=== PATIENT | female | born 1950 | race Caucasian/White ===

== ENCOUNTER 2016-12-17 18:47 | Emergency (ER) | payer OTHER ==
[2016-12-17 18:54] VITALS: BP 143/73
[2016-12-17] MEDS ORDERED: BOOSTRIX VACCINE IM ONE (19:17)
--- NOTE | 2016-12-17 19:23 | PROVIDER DOCUMENTATION ---
HPI-Animal/Snake Bite Injury - General Chief Complaint: Animal Bite Stated Complaint: DOG BITE Time Seen by Provider: 12/17/16 19:03 Patient arrived via EMS?: No Source: patient Allergies/Adverse Reactions: Patient Allergies Allergy/AdvReac Type Severity Reaction Status Date / Time desvenlafaxine succinate * Allergy Severe Unknown Verified 12/17/16 18:54 [From Pristiq] duloxetine HCl * Allergy Severe Unknown Verified 12/17/16 18:54 [From Cymbalta] ketorolac tromethamine * Allergy Severe Unknown Verified 12/17/16 18:54 [From Toradol] lamotrigine [From Lamictal] Allergy Severe Unknown Verified 12/17/16 18:54 morphine Allergy Severe ITCHING Verified 12/17/16 18:54 Sulfa (Sulfonamide Allergy Severe Unknown Verified 12/17/16 18:54 Antibiotics) venlafaxine HCl * Allergy Severe Unknown Verified 12/17/16 18:54 [From Effexor] tramadol Allergy Unknown Unknown Verified 12/17/16 18:54 haloperidol [From Haldol] Allergy DIZZINESS Verified 12/17/16 18:54 haloperidol lactate * Allergy DIZZINESS Verified 12/17/16 18:54 [From Haldol] lurasidone HCl * Allergy Unknown Verified 12/17/16 18:54 [From Latuda] ziprasidone HCl * Allergy DIZZINESS Verified 12/17/16 18:54 [From Geodon] ziprasidone mesylate * Allergy DIZZINESS Verified 12/17/16 18:54 [From Geodon] Home Medications: Home Medication List Medication Instructions Recorded Confirmed Last Taken Type Isomethept/Acetaminop/Dichlphn 1 dose PO PRN PRN 07/01/15 11/08/16 3 Months Ago History [Ityqmvroag-Kjkfotbuaf-Lnakcjuy] Clonazepam [Klonopin] 1 mg PO HS #0 tablet 07/11/15 11/08/16 1 Day Ago Rx Estradiol 1 mg PO HS #0 07/11/15 11/08/16 11/07/16 Rx Pramipexole Di-HCl [Mirapex] 0.5 mg PO HS #0 07/11/15 11/08/16 11/07/16 Rx Hydrocodone Bit/Acetaminophen 7.5 each PO 3-4XDAY PRN PRN 08/19/15 11/08/16 1 Day Ago History [Hydrocodon-Acetaminophen 5-325] L.acidoph,Paracasei, B.lactis 1 each PO DAILY PRN 08/19/15 11/08/16 11/08/16 History [Probiotic] Lidocaine 5% Patch [Lidoderm] 1 each TOP DAILY PRN 08/19/15 11/08/16 2 Days Ago History Isomethept/Acetaminop/Dichlphn 1 cap PO DAILY PRN 01/21/16 11/08/16 3 Months Ago History [Amidrine Capsule] [place] Carbonate 1 tab PO QHS 01/21/16 11/08/16 11/07/16 History Modafinil 1 tab PO DAILY 01/21/16 11/08/16 11/08/16 History Levothyroxine [Synthroid] 150 mcg PO QAM 11/08/16 11/08/16 11/08/16 History Lorazepam [Ativan] 1 mg PO HS #3 tablet 11/08/16 Unknown Rx Phenobarbital 15 mg PO QHS 11/08/16 11/08/16 11/07/16 History Amoxicillin/Pot Clavulanate 875 mg PO Q12HR #14 tablet 12/17/16 Unknown Rx [Augmentin] Doxycycline 100 mg PO BID #20 capsule 12/17/16 Unknown Rx Metronidazole 500 mg PO TID #30 tablet 12/17/16 Unknown Rx - History of Present Illness-Bite Injuries Nature of Presenting Problem: 66 y/o WF c/o dog bite to R hand x 1 hour. Pt states the dog is new to her [place], but states shots UTD including rabies. Reports that the dog has bit her several times over last week or so. States that she is taking dog back [place], but reports this is the worst bite yet. Review of Systems - Adult - REVIEW OF SYSTEMS - ADULT Constitutional: reports: no symptoms reported. denies: chills, fever Eyes: reports: no symptoms reported. denies: blurred vision, double vision Ears, Nose, Mouth & Throat: reports: no symptoms reported. denies: ear pain, nose pain Cardiovascular: reports: no symptoms reported. denies: chest pain, palpitations Respiratory: reports: no symptoms reported. denies: dyspnea on exertion, shortness of breath Gastrointestinal: reports: no symptoms reported. denies: nausea, vomiting Genitourinary: reports: no symptoms reported. denies: dysuria, frequency Musculoskeletal: reports: no symptoms reported. denies: joint pain, joint swelling Integumentary: reports: see HPI, other. denies: nail changes, rash Neurological: reports: no symptoms reported. denies: numbness, paresthesia Psychiatric: reports: no symptoms reported Endocrine: reports: no symptoms reported. denies: cold intolerance, heat intolerance Hematologic/Lymphatic: reports: no symptoms reported. denies: easy bruising, prolonged bleeding Allergic/Immunologic: reports: no symptoms reported All Other Systems: Reviewed and Negative Past History - Adult - PAST MEDICAL HISTORY-ADULT Review of Records: reports: Nursing Assessment Review, Medications Reviewed Major Childhood Illnesses: reports: denies history Genitourinary: reports: chronic UTI's Musculoskeletal: reports: chronic pain, intervertebral disc disease Psychiatric: reports: bipolar, depression Endocrine/Immune: reports: thyroid disorder - PRIOR SURGERIES/PROCEDURES Surgical/Procedure History: reports: appendectomy, cholecystectomy, hysterectomy , , back/neck, other (vaginal/rectocele repair) - IMMUNIZATION STATUS Childhood Immunizations: See Nurse Assessment Flu Vaccine: See Nurse Assessment - SOCIAL HISTORY Smoking: denies Living Situation: family Physical Exam-General - PHYSICAL EXAM-ADULT Initial Vital Signs Reviewed: Yes - CONSTITUTIONAL General Appearance: alert, mild distress - EYES Eyes: pink conjunctivae - HEAD, EARS, NOSE, MOUTH & THROAT HENMT: normocephalic/atraumatic, moist mucous membranes - NECK Neck: normal inspection - RESPIRATORY Respiratory: no respiratory distress - CARDIOVASCULAR Cardiovascular: normal peripheral pulses, regular rate, rhythm - MUSCULOSKELETAL Back Exam: normal inspection Extremity: normal range of motion, normal gait, normal capillary refill. negative: abnormal NV exam, deformity, pulse deficit Peripheral Pulses: radial (R): 2+, radial (L): 2+ - SKIN Integumentary: normal color, normal turgor, warm/dry, laceration(s) (0.5 cm superficial lac to dorsal aspect of L hand) - NEUROLOGIC Neurologic: negative: aphasia - PSYCHIATRIC Psych/Mental Status: normal mood/affect, normal thought content, normal thought process, oriented x 3 Progress - PLAN OF CARE/RESULTS Progress/Plan/Lab Results: Orders Category Date Time Status Wound Care DIRECTED Care 12/17/16 19:17 Active Diph,Pertuss(Acell),Tet Vac/Pf [Boostrix Vaccine] Med 12/17/16 19:17 Discontinued 0.5 ml IM .ONCE ONE Vital Signs Temp Pulse Resp BP Pulse Ox 12/17/16 18:49 98.3 F 93 H 18 143/73 97 desvenlafaxine succinate * [From Pristiq] Allergy (Severe, Verified 12/17/16 18: 54) Unknown JERKING duloxetine HCl * [From Cymbalta] Allergy (Severe, Verified 12/17/16 18:54) Unknown PT STATES JERKING ketorolac tromethamine * [From Toradol] Allergy (Severe, Verified 12/17/16 18:54 ) Unknown PT STATES JERKING lamotrigine [From Lamictal] Allergy (Severe, Verified 12/17/16 18:54) Unknown JERKING morphine Allergy (Severe, Verified 12/17/16 18:54) ITCHING Sulfa (Sulfonamide Antibiotics) Allergy (Severe, Verified 12/17/16 18:54) Unknown venlafaxine HCl * [From Effexor] Allergy (Severe, Verified 12/17/16 18:54) Unknown PT DOESN'T RECALL tramadol Allergy (Unknown, Verified 12/17/16 18:54) Unknown haloperidol [From Haldol] Allergy (Verified 12/17/16 18:54) DIZZINESS haloperidol lactate * [From Haldol] Allergy (Verified 12/17/16 18:54) DIZZINESS lurasidone HCl * [From Latuda] Allergy (Verified 12/17/16 18:54) Unknown ziprasidone HCl * [From Geodon] Allergy (Verified 12/17/16 18:54) DIZZINESS ziprasidone mesylate * [From Geodon] Allergy (Verified 12/17/16 18:54) DIZZINESS Isomethept/Acetaminop/Dichlphn [Jzzzgtqpdn-Oputtiuxwv-Gihulkwz] 1 dose PO PRN PRN 15 Clonazepam [Klonopin] 1 mg PO HS #0 tablet 07/11/15 Estradiol 1 mg PO HS #0 07/11/15 Pramipexole Di-HCl [Mirapex] 0.5 mg PO HS #0 07/11/15 Hydrocodone Bit/Acetaminophen [Hydrocodon-Acetaminophen 5-325] 7.5 each PO 3- 4XDAY PRN PRN 08/19/15 L.acidoph,Paracasei, B.lactis [Probiotic] 1 each PO DAILY PRN 08/19/15 Lidocaine 5% Patch [Lidoderm] 1 each TOP DAILY PRN 08/19/15 Isomethept/Acetaminop/Dichlphn [Amidrine Capsule] 1 cap PO DAILY PRN 01/21/16 [place] Carbonate 1 tab PO QHS 01/21/16 Modafinil 1 tab PO DAILY 01/21/16 Levothyroxine [Synthroid] 150 mcg PO QAM 11/08/16 Lorazepam [Ativan] 1 mg PO HS #3 tablet 11/08/16 Phenobarbital 15 mg PO QHS 11/08/16 Amoxicillin/Pot Clavulanate [Augmentin] 875 mg PO Q12HR #14 tablet 12/17/16 Doxycycline 100 mg PO BID #20 capsule 12/17/16 Metronidazole 500 mg PO TID #30 tablet 12/17/16 DISORDER OF THYROID, UNSPECIFIED (12/17/16) BIPOLAR DISORDER, UNSPECIFIED (12/17/16) MAJOR DEPRESSIVE DISORDER, SINGLE EPISODE, UNSPECIFIED (12/17/16) OTHER CHRONIC PAIN (12/17/16) LACERATION WITHOUT FOREIGN BODY OF LEFT HAND, INIT ENCNTR (12/17/16) BITTEN BY DOG, INITIAL ENCOUNTER (12/17/16) ENCOUNTER FOR IMMUNIZATION (12/17/16) OTHER SUSTAINABLE SYSTEMS ANALYST (CURRENT) DRUG THERAPY (12/17/16) Departure - Departure Time of Disposition Order: 19:22 DIAGNOSIS: Dog bite Qualifiers: Encounter type: initial encounter Qualified Code(s): W54.0XXA - Bitten by dog, initial encounter Disposition: HOME 01 Certified Medical Emergency: Emergent Condition: Stable Additional Instructions: Take medications as directed. Keep wound clean and dry. Return if symptoms get worse. ED Follow Up Instructions: You have been treated by a care provider in the Emergency Department. These instructions are being provided to you so you can have an understanding of how to care for yourself upon discharge. Upon discharge from the Emergency Department, you are responsible for making arrangements for follow-up care by a physician of your choice. Take all prescribed medications as directed. Return to the Emergency Department immediately for any new or worsening symptoms. You may call the Physician Referral phone number at [phone] to obtain a list of Physicians who are taking new patients. Prescriptions: Amoxicillin/Pot Clavulanate [Augmentin] 875 mg PO Q12HR #14 tablet Doxycycline 100 mg PO BID #20 capsule Metronidazole 500 mg PO TID #30 tablet Referrals: Valarie Yap MD [STAFF PHYSICIAN] - Instructions: Animal Bite, Friy-tn-Xycd, Amoxicillin capsules or tablets Attestation - Physician/ CONSTANTINO Attestation Patient care was provided by Advanced Practice Provider:: Yes Advanced Practice Provider:: Jessy Morales Advanced Practice Provider documentation review:: The Mid-level provider documentation, treatment plan and medical decision making was reviewed by the physician who agrees with all treatment and medical decision making by the MLP.
== END 2016-12-17 20:03 | disposition home or self-care (01) ==
LOC: P.ED 18:47
DX: S61.412A Laceration without foreign body of left hand, initial encounter (principal); G89.29 Other chronic pain; E07.9 Disorder of thyroid, unspecified; F32.9 Major depressive disorder, single episode, unspecified; F31.9 Bipolar disorder, unspecified; Z79.899 Other long term (current) drug therapy; Z23 Encounter for immunization; W54.0XXA Bitten by dog, initial encounter
CPT/HCPCS: 90471; 90715

== ENCOUNTER 2016-12-28 12:00 | Inpatient (IN) | payer OTHER ==
[2016-12-28 13:07] LABS: MANUAL DIFF NEEDED? NO
[2016-12-28 13:13] LABS: BASO% 0.5 % (0.0-0.8); EOS# 0.22 X1000 (0.0-0.7); EOS% 2.8 % (0.0-10.0); HEMATOCRIT 34.8 % (37.0-47.0); HEMOGLOBIN 10.9 g/dL (12.0-16.0); LYMPH# 1.88 X1000 (1.2-3.4); MCH 31.5 PG (27-31); MCHC 31.3 g/dL (33-37); MCV 100.6 FL (81-99); MONO# 0.68 X1000 (0.11-0.59); MONO% 8.7 % (1.7-9.3); MPV 9.4 FL (7.4-10.4); PLT 259 X1000 (130-400); RBC 3.46 XMIL (4.2-5.4)
[2016-12-28 13:33] LABS: ALBUMIN 3.5 g/dL (3.5-5.0); CALCIUM 9.2 mg/dL (8.8-10.2); POTASSIUM 4.6 mmol/L (3.5-5.1); TOTAL BILIRUBIN 0.19 mg/dL (0.20-1.00); TOTAL PROTEIN 6.5 g/dL (6.3-8.3)
[2016-12-28 13:53] LABS: CK INDEX 2.7 (0.0-2.5); CK-MB 7.89 ng/mL (0.0-5.0)
--- NOTE | 2016-12-28 13:54 | PROVIDER DOCUMENTATION ---
HPI-Neurological Disorder - General Source: patient, family Unable to obtain history due to:: altered - History of Present Illness-Neuro Severity: reports: mild, moderate Onset/Duration: reports: gradual, other (3 weeks) Timing: reports: still present, constant Context: reports: falling. denies: recent/heavy alcohol intake, recent infection, fever, impaired speech, paresthesia, seizure activity Character of Altered Mental Status: reports: trouble concentrating Any recent trauma/injury?: reports: none Character of Deficits: reports: falling Cognitive Baseline: alert, oriented x3 Gait Baseline: walks without assistance Associated Symptoms: reports: sleepy, trouble walking. denies: fainting, confusion, neck/back pain, fever/chills, loss of consciousness, muscle spasms, nausea, slurred speech, vomiting Similar Symptoms Previously?: Yes Recently seen or treated by another doctor?: Yes <Sg Vázquez - Last Filed: 12/28/16 16:23> <Julian Hernandez - Last Filed: 12/28/16 18:58> - General Chief Complaint: Syncope Stated Complaint: SYNCOPE Time Seen by Provider: 12/28/16 12:42 Allergies/Adverse Reactions: Patient Allergies Allergy/AdvReac Type Severity Reaction Status Date / Time desvenlafaxine succinate * Allergy Severe Unknown Verified 12/28/16 13:26 [From Pristiq] duloxetine HCl * Allergy Severe Unknown Verified 12/28/16 13:26 [From Cymbalta] ketorolac tromethamine * Allergy Severe Unknown Verified 12/28/16 13:26 [From Toradol] lamotrigine [From Lamictal] Allergy Severe Unknown Verified 12/28/16 13:26 morphine Allergy Severe ITCHING Verified 12/28/16 13:26 Sulfa (Sulfonamide Allergy Severe Unknown Verified 12/28/16 13:26 Antibiotics) venlafaxine HCl * Allergy Severe Unknown Verified 12/28/16 13:26 [From Effexor] tramadol Allergy Unknown Unknown Verified 12/28/16 13:26 gabapentin Allergy Unknown Verified 12/28/16 13:26 haloperidol [From Haldol] Allergy DIZZINESS Verified 12/28/16 13:26 haloperidol lactate * Allergy DIZZINESS Verified 12/28/16 13:26 [From Haldol] lurasidone HCl * Allergy Unknown Verified 12/28/16 13:26 [From Latuda] ziprasidone HCl * Allergy DIZZINESS Verified 12/28/16 13:26 [From Geodon] ziprasidone mesylate * Allergy DIZZINESS Verified 12/28/16 13:26 [From Geodon] meloxicam [From Mobic] AdvReac Unknown Verified 12/28/16 13:26 Home Medications: Home Medication List Medication Instructions Recorded Confirmed Last Taken Type Clonazepam [Klonopin] 1 mg PO HS #0 tablet 07/11/15 12/28/16 12/27/16 21:00 Rx Estradiol 1 mg PO HS #0 07/11/15 12/28/16 12/27/16 21:30 Rx Hydrocodone Bit/Acetaminophen 7.5 each PO 3-4XDAY PRN PRN 08/19/15 12/28/16 08:30 History [Hydrocodon-Acetaminophen 5-325] Lidocaine 5% Patch [Lidoderm] 1 each TOP DAILY PRN 08/19/15 12/28/16 12/24/16 History Levothyroxine [Synthroid] 150 mcg PO QAM 11/08/16 12/28/16 12/28/16 08:30 History Lorazepam [Ativan] 1 mg PO HS #3 tablet 11/08/16 12/28/16 Unknown Rx Bupropion S.r. [Wellbutrin Sr] 150 mg PO BID 12/28/16 12/28/16 12/28/16 08:30 History Buspirone [Buspar] 5 mg PO BID 12/28/16 12/28/16 12/28/16 08:30 History Naproxen Sodium [Anaprox Ds] 550 mg PO BID 12/28/16 12/28/16 Unknown History Tizanidine HCl [Zanaflex] 4 mg PO TID 12/28/16 12/28/16 12/28/16 08:30 History - History of Present Illness-Neuro Nature of Presenting Problem: patient is a 66 y/o F that presents to the ER with lethargy, slow to respond, and having passed out in chair per . patient for 3 weeks has been tired, sleeping, falling, and unable to stay awake. she was recently admitted to [facility] and saw her neurologist( ) which work up was negative. Patient is on numerous medications that are sedative. Has appointment with again next week (Sg Vázquez) Review of Systems - Adult - REVIEW OF SYSTEMS - ADULT ROS:: limited per condition Constitutional: reports: fatique. denies: chills, fever Eyes: reports: no symptoms reported Ears, Nose, Mouth & Throat: reports: no symptoms reported Cardiovascular: reports: syncope. denies: chest pain, palpitations Respiratory: denies: cough, shortness of breath, wheezing Gastrointestinal: denies: abdominal pain, diarrhea, nausea, vomiting Genitourinary: reports: no symptoms reported Musculoskeletal: denies: bone pain, back pain, joint pain, neck pain Integumentary: reports: no symptoms reported Neurological: reports: loss of balance, syncope. denies: dizziness/vertigo, headache/migraines Psychiatric: reports: no symptoms reported Endocrine: reports: no symptoms reported Hematologic/Lymphatic: reports: no symptoms reported Allergic/Immunologic: reports: no symptoms reported All Other Systems: Reviewed and Negative <Sg Vázquez - Last Filed: 12/28/16 16:23> Past History - Adult - PAST MEDICAL HISTORY-ADULT Review of Records: reports: Old Records Reviewed, Nursing Assessment Review, Medications Reviewed Genitourinary: reports: chronic UTI's Musculoskeletal: reports: chronic pain, intervertebral disc disease Neurological: reports: CVA Psychiatric: reports: bipolar, depression Endocrine/Immune: reports: thyroid disorder - PRIOR SURGERIES/PROCEDURES Surgical/Procedure History: reports: appendectomy, cholecystectomy, hysterectomy , , back/neck, other (vaginal/rectocele repair) - IMMUNIZATION STATUS Childhood Immunizations: See Nurse Assessment Flu Vaccine: See Nurse Assessment - FAMILY HISTORY Family History: reviewed, not pertinent - SOCIAL HISTORY Smoking: non-smoker Living Situation: family <Sg Vázquez - Last Filed: 12/28/16 16:23> Physical Exam- Neurological - Physical Exam-Neuro Initial Vital Signs Reviewed: Yes General Appearance: no apparent distress, lethargic, slow to respond Eye Exam: bilateral eye: other (pinpoint) HENMT: normocephalic/atraumatic, moist mucous membranes, normal ENT inspection Head Injury: no evidence of injury. 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, no motor/sensory deficits Integumentary: normal color, warm/dry Psych/Mental Status: oriented x 3, other (slow to respond, lethargy) <Sg Vázquez - Last Filed: 12/28/16 16:23> Progress - EKG 1 Time of EKG reading by physician:: 12:36 EKG Read and Signed by:: Abdifatah Guy EKG Interpretation (*Must complete 3 of following elements*): Abnormal Rate: 52 Rhythm: Sinus Bradycardia with 1st degree AV Block 2 Time of EKG reading by physician:: 16:10 EKG Read and Signed by:: Saroj García EKG Interpretation (*Must complete 3 of following elements*): Abnormal Rate: 58 Rhythm: Sinus Bradycardia with 1st Degree Av block [place]: normal QRS: normal [place] Interval: normal ST Wave: normal - CHANGE OF SHIFT REPORT (ED Provider) Report Given and Care Transferred to:: Dorita GARCIA Time of Transfer: 16:00 Items Pending: Labs Tentative Impression of Patient: over medication <Sg Vázquez - Last Filed: 12/28/16 16:23> - CONSULTS/PCP/HOSPITALIST Notification #1 *Consult/PCP/Hospitalist*: briggs Time Discussed: 18:56 Reason/Comments: night team will admit Consult Disposition: Admit <Julian Hernandez - Last Filed: 12/28/16 18:58> - PLAN OF CARE/RESULTS Progress/Plan/Lab Results: plan of care-labs, ekg 1559-repeat cardiacs (Sg Vázquez) Laboratory Tests 12/28/16 12/28/16 12/28/16 12:47 12:47 12:47 WBC 7.82 RBC 3.46 L Hgb 10.9 L Hct 34.8 L MCV 100.6 H MCH 31.5 H MCHC 31.3 L RDW Std Deviation 13.6 Plt Count 259 MPV 9.4 Neut % (Auto) 64.0 Lymph % (Auto) 24.0 [place] % (Auto) 8.7 Eos % (Auto) 2.8 Baso % (Auto) 0.5 Neut # (Auto) 5.00 Lymph # (Auto) 1.88 [place] # (Auto) 0.68 H Eos # (Auto) 0.22 Baso # (Auto) 0.04 PT INR PTT (Actin FS) Sodium 138 Potassium 4.6 Chloride 105 Carbon Dioxide 25 Anion Gap 8 BUN 16 Creatinine 1.1 H Estimated GFR/1.73 m2 50 BUN/Creatinine Ratio 15 Glucose 107 H Calculated Osmolality 277 Calcium 9.2 Total Bilirubin 0.19 L AST 21 ALT 23 Alkaline Phosphatase 69 Creatine Kinase 297 H Creatine Kinase Index 2.7 H CK-MB (CK-2) 7.89 H Troponin T Total Protein 6.5 Albumin 3.5 Globulin 3.0 Albumin/Globulin Ratio 1.2 Urine Source Urine Color Urine Turbidity Urine pH Ur Specific [place] Urine Protein Ur Glucose (Stick) Ur Ketones (Stick) Urine Blood Urine Nitrite Urine Bilirubin Urobilinogen Dipstick Urine Leukocytes Urine WBC (Auto) Urine RBC (Auto) U Epithel Cells (Auto) Urine Bacteria (Auto) Urine Opiates Screen Ur Oxycodone Screen Ur Methadone, Qual Ur Barbiturates Screen Ur Phencyclidine Scrn Ur Amphetamines Screen U Benzodiazepines Scrn [place] Urine Cocaine Screen U Cannabinoids Screen Plasma/Serum Ethyl Alc 12/28/16 12/28/16 12/28/16 12:47 12:47 14:31 WBC RBC Hgb Hct MCV MCH MCHC RDW Std Deviation Plt Count MPV Neut % (Auto) Lymph % (Auto) [place] % (Auto) Eos % (Auto) Baso % (Auto) Neut # (Auto) Lymph # (Auto) [place] # (Auto) Eos # (Auto) Baso # (Auto) PT 9.5 INR 0.93 PTT (Actin FS) 23.9 Sodium Potassium Chloride Carbon Dioxide Anion Gap BUN Creatinine Estimated GFR/1.73 m2 BUN/Creatinine Ratio Glucose Calculated Osmolality Calcium Total Bilirubin AST ALT Alkaline Phosphatase Creatine Kinase Creatine Kinase Index CK-MB (CK-2) Troponin T < 0.010 Total Protein Albumin Globulin Albumin/Globulin Ratio Urine Source Urine Color Urine Turbidity Urine pH Ur Specific [place] Urine Protein Ur Glucose (Stick) Ur Ketones (Stick) Urine Blood Urine Nitrite Urine Bilirubin Urobilinogen Dipstick Urine Leukocytes Urine WBC (Auto) Urine RBC (Auto) U Epithel Cells (Auto) Urine Bacteria (Auto) Urine Opiates Screen Ur Oxycodone Screen Ur Methadone, Qual Ur Barbiturates Screen Ur Phencyclidine Scrn Ur Amphetamines Screen U Benzodiazepines Scrn [place] 1.50 H Urine Cocaine Screen U Cannabinoids Screen Plasma/Serum Ethyl Alc 12/28/16 12/28/16 12/28/16 14:59 14:59 16:17 WBC RBC Hgb Hct MCV MCH MCHC RDW Std Deviation Plt Count MPV Neut % (Auto) Lymph % (Auto) [place] % (Auto) Eos % (Auto) Baso % (Auto) Neut # (Auto) Lymph # (Auto) [place] # (Auto) Eos # (Auto) Baso # (Auto) PT INR PTT (Actin FS) Sodium Potassium Chloride Carbon Dioxide Anion Gap BUN Creatinine Estimated GFR/1.73 m2 BUN/Creatinine Ratio Glucose Calculated Osmolality Calcium Total Bilirubin AST ALT Alkaline Phosphatase Creatine Kinase 265 H Creatine Kinase Index 2.7 H CK-MB (CK-2) 7.28 H Troponin T Total Protein Albumin Globulin Albumin/Globulin Ratio Urine Source CLEAN CATCH Urine Color YELLOW Urine Turbidity CLEAR Urine pH 7.0 Ur Specific [place] 1.012 Urine Protein NEGATIVE Ur Glucose (Stick) NEGATIVE Ur Ketones (Stick) NEGATIVE Urine Blood NEGATIVE Urine Nitrite NEGATIVE Urine Bilirubin NEGATIVE Urobilinogen Dipstick NORMAL Urine Leukocytes NEGATIVE Urine WBC (Auto) <10 Urine RBC (Auto) <10 U Epithel Cells (Auto) <10 Urine Bacteria (Auto) NEGATIVE Urine Opiates Screen NONE DETECTED Ur Oxycodone Screen NONE DETECTED Ur Methadone, Qual NONE DETECTED Ur Barbiturates Screen PRESUMPTIVE POSITIVE A Ur Phencyclidine Scrn NONE DETECTED Ur Amphetamines Screen NONE DETECTED U Benzodiazepines Scrn PRESUMPTIVE POSITIVE A [place] Urine Cocaine Screen NONE DETECTED U Cannabinoids Screen NONE DETECTED Plasma/Serum Ethyl Alc 12/28/16 16:17 WBC RBC Hgb Hct MCV MCH MCHC RDW Std Deviation Plt Count MPV Neut % (Auto) Lymph % (Auto) [place] % (Auto) Eos % (Auto) Baso % (Auto) Neut # (Auto) Lymph # (Auto) [place] # (Auto) Eos # (Auto) Baso # (Auto) PT INR PTT (Actin FS) Sodium Potassium Chloride Carbon Dioxide Anion Gap BUN Creatinine Estimated GFR/1.73 m2 BUN/Creatinine Ratio Glucose Calculated Osmolality Calcium Total Bilirubin AST ALT Alkaline Phosphatase Creatine Kinase Creatine Kinase Index CK-MB (CK-2) Troponin T < 0.010 Total Protein Albumin Globulin Albumin/Globulin Ratio Urine Source Urine Color Urine Turbidity Urine pH Ur Specific [place] Urine Protein Ur Glucose (Stick) Ur Ketones (Stick) Urine Blood Urine Nitrite Urine Bilirubin Urobilinogen Dipstick Urine Leukocytes Urine WBC (Auto) Urine RBC (Auto) U Epithel Cells (Auto) Urine Bacteria (Auto) Urine Opiates Screen Ur Oxycodone Screen Ur Methadone, Qual Ur Barbiturates Screen Ur Phencyclidine Scrn Ur Amphetamines Screen U Benzodiazepines Scrn [place] Urine Cocaine Screen U Cannabinoids Screen Plasma/Serum Ethyl Alc Orders Category Date Time Status Cardiac Monitoring DIRECTED Care 12/28/16 12:59 Active ED: Orthostatic Vital Signs (E as directed Care 12/28/16 17:19 Active Finger Stick Blood Sugar (ED) DIRECTED Care 12/28/16 12:59 Active Saline Loc NOW Care 12/28/16 12:59 Active Straight Catheterization ORDERED Care 12/28/16 13:50 Active ALCOHOL BLOOD Stat Lab 12/28/16 12:47 Completed CBC WITH ELECTRONIC DIFF [HEME] Stat Lab 12/28/16 12:47 Completed CK PROFILE [SP CHEM] Stat Lab 12/28/16 12:47 Completed CK PROFILE [SP CHEM] Stat Lab 12/28/16 16:17 Completed COMPREHENSIVE METABOLIC PANEL [CHEM] Stat Lab 12/28/16 12:47 Completed LITHIUM [TDM] Stat Lab 12/28/16 14:31 Completed PROTIME WITH INR [COAG] Stat Lab 12/28/16 12:47 Completed PTT [COAG] Stat Lab 12/28/16 12:47 Completed TROPONIN T Stat Lab 12/28/16 12:47 Completed TROPONIN T Stat Lab 12/28/16 16:17 Completed URINALYSIS W/POSS RFLX CULT [URINALYSIS] Stat Lab 12/28/16 14:59 Completed URINE DRUG SCREEN Stat Lab 12/28/16 14:59 Completed 0.9% Sodium Chloride Inj [Ns] 1,000 ml Med 12/28/16 17:19 Discontinued IV 999 mls/hr Pulse Oximetry Stat Oth 12/28/16 12:59 Active EKG [EKG] Stat Ther 12/28/16 12:59 Draft EKG [EKG] Stat Ther 12/28/16 15:59 Ordered Vital Signs - 24 hr 12/28/16 12/28/16 12/28/16 12:28 12:49 14:00 Temperature 97.4 F L 97.6 F Pulse Rate 52 L 52 L 67 Pulse Rate [ Sitting] Pulse Rate [ Standing] Pulse Rate [ Supine] Respiratory 14 16 18 Rate Blood Pressure 128/69 129/68 113/73 Blood Pressure [Sitting] Blood Pressure [Standing] Blood Pressure [Supine] O2 Sat by Pulse 100 99 100 Oximetry 12/28/16 12/28/16 12/28/16 16:00 16:44 17:33 Temperature 97.6 F Pulse Rate 60 58 L Pulse Rate [ 62 Sitting] Pulse Rate [ 70 Standing] Pulse Rate [ 61 Supine] Respiratory 20 18 Rate Blood Pressure 155/83 127/69 Blood Pressure 138/63 [Sitting] Blood Pressure 144/73 [Standing] Blood Pressure 137/62 [Supine] O2 Sat by Pulse 100 99 Oximetry 12/28/16 17:41 Temperature Pulse Rate 67 Pulse Rate [ Sitting] Pulse Rate [ Standing] Pulse Rate [ Supine] Respiratory 14 Rate Blood Pressure 144/73 Blood Pressure [Sitting] Blood Pressure [Standing] Blood Pressure [Supine] O2 Sat by Pulse 98 Oximetry (Julian Hernandez) Departure <Sg Vázquez - Last Filed: 12/28/16 16:23> - Departure Time of Disposition Order: 18:53 Certified Medical Emergency: Emergent <Julian Hernandez - Last Filed: 12/28/16 18:58> - Departure DIAGNOSIS: Benzodiazepine dependence, Bipolar disorder, curr episode depressed, severe, w/ psychotic features Chronic pain Qualifiers: Chronic pain type: chronic pain syndrome Qualified Code(s): G89.4 - Chronic pain syndrome Opiate dependence Qualifiers: Substance use status: uncomplicated Qualified Code(s): F11.20 - Opioid dependence, uncomplicated [place] toxicity Qualifiers: Encounter type: initial encounter Injury intent: accidental or unintentional Qualified Code(s): T56.891A - Toxic effect of other metals, accidental ( unintentional), initial encounter Disposition: ADMITTED INPATIENT 09 Condition: Poor Referrals: Leonid Ugalde MD [Primary Care Provider] - Attestation - Scribe Verification/Attestation Scribe:: Sg Vázquez Acting as Scribe for:: Abdifatah Guy Scribe documention review:: This chart was documented by a scribe and accurately reflects the service the provider performed and the decisions made by the provider. - Scribe Verification/Attestation #2 Scribe Name: Sg Vázquez Acting as Scribe for:: Saroj DelgadoAzael García - Physician/ CONSTANTINO Attestation Patient care was provided by Advanced Practice Provider:: Yes Advanced Practice Provider:: Julian Hernandez Advanced Practice Provider documentation review:: The Mid-level provider documentation, treatment plan and medical decision making was reviewed by the physician who agrees with all treatment and medical decision making by the MLP. The physician spent face to face time with patient:: Yes ( initially saw patient, turned over to Jasen GARCIA) Advanced Practice Provider documentation review:: The physician spent face to face time with this patient and agrees with all MLP documentation, treatment, and medical decision making by the MLP. See provider notes for further information. <Sg Vázquez - Last Filed: 12/28/16 16:23> - Physician/ CONSTANTINO Attestation Patient care was provided by Advanced Practice Provider:: Yes Advanced Practice Provider:: Julian Hernandez Advanced Practice Provider documentation review:: The Mid-level provider documentation, treatment plan and medical decision making was reviewed by the physician who agrees with all treatment and medical decision making by the MLP. <Julian Hernandez - Last Filed: 12/28/16 18:58> Physician Attestation - Physician Attestation I, the provider, attest to the following statement:: Abdifatah Guy Physician documentation Attestation:: This documentation recorded by the scribe accurately reflects the service I personally performed and the decisions made by me. <Sg Vázquez - Last Filed: 12/28/16 16:23> - Physician Attestation I, the provider, attest to the following statement:: Julian Hernandez Physician documentation Attestation:: This documentation recorded by the scribe accurately reflects the service I personally performed and the decisions made by me. <Julian Hernandez - Last Filed: 12/28/16 18:58>
[2016-12-28 13:59] LABS: INR 0.93; PROTIME 9.5 Seconds (9.2-11.7); PTT 23.9 Seconds (22.0-36.0)
--- NOTE | 2016-12-28 14:34 | EKG Report ---
Test Performed on : 12/28/2016 12:36:12 PM Test Reason : AMS Blood Pressure : / mmHG Vent. Rate : 052 BPM Atrial Rate : 052 BPM P-R Int : 212 ms QRS Dur : 092 ms QT Int : 466 ms P-R-T Axes : 049 029 075 degrees QTc Int : 433 ms Sinus bradycardia. with 1st degree AV block. Otherwise normal ECG When compared with ECG of 08-NOV-2016 11:38, FL interval has increased Nonspecific T wave abnormality now evident in Lateral leads Unconfirmed Result
[2016-12-28 15:00] LABS: URINE CULTURE NEEDED? NO; URINE MICRO REVIEW NEEDED? NO; URINE SOURCE CLEAN CATCH
[2016-12-28 15:10] LABS: BILIRUBIN URINE NEGATIVE (NEGATIVE); BLOOD URINE NEGATIVE (NEGATIVE); COLOR YELLOW; GLUCOSE URINE NEGATIVE (NEGATIVE); LEUKOCYTES URINE NEGATIVE (NEGATIVE); NITRITE URINE NEGATIVE (NEGATIVE); PROTEIN URINE NEGATIVE (NEGATIVE); SP GRAVITY URINE 1.012; TURBIDITY URINE CLEAR (CLEAR); UROBILINOGEN URINE NORMAL (NORMAL)
[2016-12-28 15:12] LABS: UR EPITHELIAL CELLS <10 /HPF (<10); URINE BACTERIA NEGATIVE /HPF; URINE RBC <10 /HPF (<10); URINE WBC <10 /HPF (<10)
[2016-12-28 15:26] LABS: UR AMPHETAMINES QUAL NONE DETECTED (NONE DETECT); UR BARBITUATES QUAL PRESUMPTIVE POSITIVE (NONE DETECT); UR BENZODIAZEPIN QUAL PRESUMPTIVE POSITIVE (NONE DETECT); UR CANNABINOIDS QUAL NONE DETECTED (NONE DETECT); UR COCAINE QUAL NONE DETECTED (NONE DETECT); UR METHADONE QUAL NONE DETECTED (NONE DETECT); UR OPIATES QUAL NONE DETECTED (NONE DETECT); UR OXYCODONE QUAL NONE DETECTED (NONE DETECT); UR PCP QUAL NONE DETECTED (NONE DETECT)
[2016-12-28 17:02] LABS: CK INDEX 2.7 (0.0-2.5); CK-MB 7.28 ng/mL (0.0-5.0)
[2016-12-28] MEDS ORDERED: NS 1,000 ML IV ONE (17:19)
--- NOTE | 2016-12-28 20:03 | HISTORY AND PHYSICAL ---
HISTORY OF PRESENT ILLNESS: This is a 66-year-old who presented to the emergency room. The story was that she just got out of [facility] where apparently she was admitted. I think she had some hallucinations, she was confused and they did a series of tests and by their words could not find anything. This is according to her [id number]. I looked back at old records where I admitted her on 07/01/2015. She had multiple prior admissions, chief complaint confusion, possible side effects to medications, suicidal ideation paranoid, depression, possible visual hallucinations. That was back when she went to [facility]. ALLERGIES: Morphine, Linzess, Toradol, Sulfa, Lamictal, numerous antidepressants. PAST SURGICAL HISTORY: Apparently she has had a hysterectomy. She has had her gallbladder out. She has had A and P repair, rectal repair. Story is that her found her on the floor and she was confused and he had a hard time waking her up. They are not exactly what sure what medications she is on. I think he went home to get the list. Drug screen is positive for barbiturates, positive for benzodiazepines. [place] level is 1.5. MEDICATIONS: Best I can tell is Wellbutrin SR 150 mg b.i.d. BuSpar 5 mg b.i.d. Klonopin 1 mg at bedtime. Estradiol 1 mg p.o. at bedtime. Hydrocodone/acetaminophen 7.5 mg t.i.d. Synthroid 150 mcg q.a.m. Lidoderm patch p.r.n. Ativan 1 mg at bedtime. Anaprox 550 mg p.o. b.i.d. Zanaflex 4 mg t.i.d. I am not sure if this is the accurate list or not. REVIEW OF SYSTEMS: Denies any weight gain or loss. No fever or chills. [id number] states that this has been going on for months. She has visual hallucinations, and there are times of confusion that wax and wane and speech is somewhat slow, sometimes it is slurred. They have not noted any focal neurologic deficits. No chest pain. No shortness of breath. No change in GI or habits. PHYSICAL EXAMINATION: VITAL SIGNS: Blood pressure 155/83, pulse 60, respirations 20, O2 saturation 100%. No tilt. Blood pressure standing was 130/63 with a pulse 62, blood pressure supine was 144/73, pulse of 70, and blood pressure supine was 137/62, pulse 61. HEENT: The pupils are equal and round. CVP less than 6 cm. LUNGS: Clear in all lung farris. CARDIOVASCULAR: Regular rhythm and rate without murmur or S3. ABDOMEN: Soft. SKIN: Warm and dry. LABORATORY: White count 7820, hematocrit 34, platelet count 259,000. Sodium 138, potassium 4.6, chloride 105, bicarb 25, BUN 16, creatinine 1.1, blood sugar 107. CPK is 297 and 265, troponin less than 0.01. ASSESSMENT AND PLAN: 1. Metabolic encephalopathy. This clearly looks like polypharmacy and also has concerns for serotonin-like syndrome and she is on numerous medications that compound that, especially the serotonin syndrome. So I am going to hold her hydrocodone. She is in no sign of pain or distress. I am going to decrease her Wellbutrin. We will see how we do. I explained this to the sister in law. In fact I see no focal neurologic deficits, no sign of central neurologic issues. She has had numerous computed tomography scans of the head. She had a cervical spine magnetic resonance imaging in January. She had head computed tomography done in October again. She had electroencephalogram done. Her electrocardiogram done on admission was unremarkable. 1. History of bipolar illness. I saw an admission back there to [facility] on 07/02/2015. She has had chronic pain in thoracic, lumbar and cervical spine. So I need to decrease the lithium and watch the level as it is a little bit high. 2. Apparently has a history of questionable seizures in the past. I cannot get much history on that. At any rate, possible seizure disorder. Possible history of mini-strokes, although there has been no focal neurologic deficits. 3. Lastly, she is she has had a thyroidectomy secondary to thyroid cancer. 4. She has had a history of depression, paranoia and suicidal ideation in the past.
[2016-12-28] MEDS ORDERED: KLONOPIN PO SCH (21:00)
[2016-12-28] MEDS ORDERED: ESTRACE PO SCH (21:00)
[2016-12-28] MEDS: NAPROSYN PO SCH (22:07)
[2016-12-28] MEDS: NS 1,000 ML IV SCH (22:08)
[2016-12-29] MEDS: NS 1,000 ML IV SCH (06:55)
--- NOTE | 2016-12-29 07:23 | EKG Report ---
Test Performed on : 12/28/2016 4:10:34 PM Test Reason : syncope Blood Pressure : / mmHG Vent. Rate : 058 BPM Atrial Rate : 058 BPM P-R Int : 212 ms QRS Dur : 084 ms QT Int : 424 ms P-R-T Axes : 046 026 069 degrees QTc Int : 416 ms Sinus bradycardia. with 1st degree AV block. Otherwise normal ECG When compared with ECG of 28-DEC-2016 12:36, (Unconfirmed) No significant change was found Unconfirmed Result
[2016-12-29 07:32] LABS: MANUAL DIFF NEEDED? NO
[2016-12-29 07:33] VITALS: BP 138/69
[2016-12-29 07:39] LABS: BASO% 0.6 % (0.0-0.8); EOS# 0.21 X1000 (0.0-0.7); HEMATOCRIT 34.1 % (37.0-47.0); LYMPH# 2.23 X1000 (1.2-3.4); LYMPH% 31.9 % (20.5-51.1); MCH 31.3 PG (27-31); MCHC 32.3 g/dL (33-37); MCV 96.9 FL (81-99); MONO# 0.58 X1000 (0.11-0.59); MONO% 8.3 % (1.7-9.3); MPV 9.5 FL (7.4-10.4); NEUT% 56.2 % (42.2-75.2); PLT 276 X1000 (130-400); RBC 3.52 XMIL (4.2-5.4)
[2016-12-29 08:03] LABS: ALBUMIN 3.6 g/dL (3.5-5.0); CALCIUM 9.1 mg/dL (8.8-10.2); MAGNESIUM 1.9 mg/dL (1.5-2.7); POTASSIUM 3.8 mmol/L (3.5-5.1); TOTAL BILIRUBIN 0.28 mg/dL (0.20-1.00); TOTAL PROTEIN 6.3 g/dL (6.3-8.3)
[2016-12-29 08:12] LABS: INR 0.95; PROTIME 9.7 Seconds (9.2-11.7); PTT 24.1 Seconds (22.0-36.0)
[2016-12-29] MEDS ORDERED: SYNTHROID PO SCH (09:00)
[2016-12-29] MEDS: NAPROSYN PO SCH (09:56)
--- NOTE | 2016-12-29 14:53 | PROGRESS NOTE ---
DATE: 12/29/2016 This 66-year-old presented to the emergency room. She got out of [facility] apparently which she was admitted for altered mental status and confusion, had some hallucinations and they did a workup. According to the family, it was unremarkable and negative. She came in today with confusion and lethargy. had left her for a little bit and came back, and she was lying on the floor, very lethargic. The patient was admitted to the hospital and given IV fluids. Appeared to have a suggestion of a serotonin syndrome. I kept her off of her hydrocodone, and I kept her off of her Ativan and stopped the BuSpar. She felt much better the next morning, and I did decrease her Wellbutrin to just once a day. They are requesting to go home. So, I will set them up to go home and give them a list of their medications. They will follow up with Dr. Ugalde. Right now she will be on Klonopin 1 mg at bedtime, Estrace 1 mg at bedtime, Synthroid 150 mcg daily, and then Naprosyn 550 mg b.i.d.
== END 2016-12-29 15:06 | disposition home health service (06) | DRG 92 ==
LOC: EDBD → ED 12:00 → 3N 20:13
PROVIDERS: ATTEND Emergency Medicine
DX: G92 Toxic encephalopathy (principal); F31.5 Bipolar disorder, current episode depressed, severe, with psychotic features; F11.20 Opioid dependence, uncomplicated; G89.4 Chronic pain syndrome; Z79.899 Other long term (current) drug therapy; Z85.850 Personal history of malignant neoplasm of thyroid; T50.995A Adverse effect of other drugs, medicaments and biological substances, initial encounter
CPT/HCPCS: 36415; 80053; 80178; 81001; 82550; 82553; 82948; 83735; 84443; 84484; 85025; 85610; 85730; 93005; 94761; 99285; G0480; J7030; 80320; 80324; 80345; 80346; 80349; 80353; 80358; 80361; 80365; 83992